=== PATIENT | female | born 1945 | race Caucasian/White ===

== ENCOUNTER 2016-07-19 16:35 | Emergency (ER) | payer MEDICARE, BC ==
[2016-07-19] MEDS ORDERED: MORPHINE SULFATE 4 MG/ML SYRG IV ONE (17:37)
[2016-07-19 17:59] LABS: Hematocrit 40.1 % (37.0-47.0); Mean Cell Volume 91.3 fl (78-100); Mean Corpuscular Hemoglobin 31.9 pg (27-31); Mean Corpuscular Hgb Conc 34.9 g/dl (32-36); Mean Platelet Volume 11.4 fl (6.0-9.5); Neutrophil # 4.4 K/mm3 (1.3-6.0); Neutrophil % 70.8 % (42-75.0); Platelet Count 137 K/mm3 (150-450); Red Blood Count 4.39 M/mm3 (4.2-5.4); Red Cell Distribution Width 13.9 % (11.5-14.0); White Blood Count 6.2 K/mm3 (4.0-10.5)
[2016-07-19 18:04] LABS: Prothrombin Time (Patient) 33.4 Seconds (9.4-11.4)
[2016-07-19] MEDS ORDERED: MORPHINE SULFATE 4 MG/ML SYRG ONE (18:04)
[2016-07-19 18:07] LABS: Albumin * 4.2 gm/dl (3.4-5.0); Anion Gap 14.2 mmol/L (6.8-13.8); BUN/Creatinine Ratio 25.8 (9.0-21.6); Bilirubin, Total 1.1 mg/dL (0.0-1.1); Ca. Corrected For Albumin 8.7 mg/dL (8.4-10.2); Calcium * 9.2 mg/dL (7.9-10.9); Carbon Dioxide 28.1 mmol/L (24-32.6); Potassium 3.3 mmol/L (3.4-4.6); Total Protein 7.6 gm/dL (6.2-8.2)
[2016-07-19 18:09] LABS: INR 3.21 INR (0.90-1.10)
--- NOTE | 2016-07-19 18:30 | ERNOTE ---
Lower Extremity HPI - Narrative Date of Service: 07/19/16 - General Lower Extremities Pain: hip: right Time Seen by Provider: 07/19/16 17:00 Source: patient Exam Limitations: no limitations - Immun/Allergies/Home Medications Immunizations: IMMUNIZATION HX Immunizations Up to Date Yes History of Influenza Vaccine Yes Hx Pneumococcal Vaccination Yes Allergies/Adverse Reactions: Allergies Allergy/AdvReac Type Severity Reaction Status Date / Time secobarbital sodium Allergy Intermediate HIVES, Verified 07/19/16 16:55 [From [place]] HEART PALPITATIONS bee venom (honey bee) Allergy Shortness Verified 07/19/16 16:55 of Breath Home Medications: HOME MEDICATIONS Hydroxychloroquine Sulfate [Plaquenil] 400 mg PO DAILY 04/22/12 [Last Taken Unknown] Atenolol [Tenormin] 50 mg PO QPM 04/28/12 [Last Taken 10/24/15 07:00] Omeprazole [Prilosec] 40 mg PO DAILY 12/29/13 [Last Taken Unknown] Potassium Chloride [K-Dur] 20 meq PO DAILY 12/29/13 [Last Taken Unknown] Simvastatin 40 mg PO DAILY 12/29/13 [Last Taken Unknown] Warfarin Sodium [Coumadin] 4 mg PO SUMOWETHSA 03/10/14 [Last Taken Unknown] Levothyroxine Sodium [Synthroid] 150 mcg PO DAILY 05/25/14 [Last Taken Unknown] Furosemide [Lasix] 120 mg PO DAILY 12/01/14 [Last Taken Unknown] Loratadine [Claritin] 10 mg PO DAILY 12/01/14 [Last Taken Unknown] Polyethylene Glycol 3350 [Gentlelax] 17 gm PO DAILY PRN #510 gm 06/04/15 [Last Taken Unknown] Epinephrine [Epipen 2-Jose] 0.3 mg IM ONCE PRN 08/05/15 [Last Taken Unknown] Warfarin Sodium [Coumadin] 6 mg PO TUFR 08/15/15 [Last Taken Unknown] Acetaminophen [Tylenol] 650 mg PO Q4H PRN 10/17/15 [Last Taken Unknown] Cholecalciferol (Vitamin D3) [Vitamin D3] 2,000 unit PO DAILY 10/17/15 [Last Taken Unknown] oxyCODONE HCL/ACETAMINOPHEN [Percocet 5 MG/325 MG] 1 - 2 tab PO Q4H PRN #90 tab 10/24/15 [Last Taken Unknown] - History of Present Illness Narrative: patient presents to the ED for right hip pain. 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 Landed on right hip. Pain right hip, buttock and groin. Also some pain right mid thigh. no pain below the knee. Also landed right arm with right forearm pain. She is not sure but doesn't think there is any new focal N/T/W. pain severe. Worse with movement and palpation. Could not bear weight after the fall. No nead injury. No posterior neck or back pain. no CP or SOB. No syncope or LOC. Occurred: just prior to arrival Method of Injury: Reports: fell, other - slipped on ice Reason for Fall: Reports: slipped Loss of Consciousness: Reports: no loss of consciousness Modifying Factors - (Improves): Reports: rest Modifying Factors - (Worsens): Reports: movement Associated Symptoms: Reports: unable to bear weight. Denies: headache, chest pain, vomiting/diarrhea, bowel/bladder problems Subsequent Symptoms: Denies: motor loss Prior Treament: Denies: recently seen Review of Systems - Review of Systems Constitutional: Absent: fever Respiratory: Absent: shortness of breath Cardiology: Absent: chest pain Gastrointestinal/Abdominal: Absent: abdominal pain Genitourinary: Absent: dysuria Skin: Present: other - no laceration Neurological: Present: See HPI All Other Systems: All systems neg except as marked - Patient's Past Medical History Patient History - Medical: Arthritis, GERD, Hypothyroidism, Other Patient History - Cardiac/Respiratory: Atrial Fibrillation, Valvular Heart Disease, Other Patient History - Cancer: No Hx of Cancer Patient History - Surgical Procedures: Cataracts, Total Knee Replacement, Tubal Ligation, T & A, Other Patient History - Other: None - Family History Mother Family History - Medical: Family History - Cardiac/Respiratory: Coronary Heart Disease, Myocardial Infarction Father Family History - Medical: Brother Family History - Medical: No pertinent hx Family History - Cardiac/Respiratory: Asthma Sister Family History - Medical: No pertinent hx Family History - Cardiac/Respiratory: Asthma - Social History Living Situations: home Abuse History: No History of abuse Psych History: No pertinent hx Have you smoked in the past 12 months: No Do you dip or chew tobacco: No Alcohol Use: none Drug Use: none - Immunizations Immunizations Up to Date: Yes Hx Pneumococcal Vaccination: Yes History of Influenza Vaccine: Yes Physical Exam - Physical Exam General Appearance: Present: alert, no apparent distress Eye Exam: Normal inspection: bilateral, PERRL: bilateral Ears, Nose, Throat: Present: normal ENT inspection Neck: Present: normal inspection, other - no posterior cervial spine tenderness. No step offs Respiratory: Present: no respiratory distress, normal breath sounds, no accessory muscle use, lungs clear Cardiovascular/Chest: Present: regular rate, rhythm, normal peripheral pulses Peripheral Pulses: N=norm/S=strong/W=weak/B=bound/A=absent: Dorsalis-pedis (R): Normal, Dorsalis-pedis (L): Normal Gastrointestinal/Abdominal: Present: normal bowel sounds, nontender, soft. Absent: tenderness Back Exam: Present: no vertebral tenderness Extremity Exam: Present: other - Right shoulder non-tender. Right elbow non- tender. Mild right mid forearm tenderness. No wrist tenderness. Right lateral hip tenderness and groin tenderness. Pain with ROOM right hip. No knee or LE tenderness. No compartment syndrome. Neurological Exam: Present: other - Pain limits exam but no clear acute unilateral focal motor or sensory deficits. Skin Exam: Present: other - no lacerations seen ED Progress - Results and Orders Patient's Lab Results:: I have reviewed the patient's lab results. - Vital Signs Patient's Vital Signs:: I have reviewed the patient's vital signs. Vital Signs: Vital Signs 07/19/16 07/19/16 16:50 18:19 Pulse Rate 87 77 Respiratory 16 18 Rate Blood Pressure 174/88 148/52 O2 Sat by Pulse 97 96 Oximetry - X-Ray X-Ray #1 X-Ray: forearm Interpretation: Reviewed by me X-ray Comments: I reviewed radiology report X-Ray #2 X-Ray: hip Interpretation: Reviewed by me X-ray Comments: I reviewed official radiology report X-Ray #3 X-Ray: femur Interpretation: Reviewed by me X-ray Comments: I reviewed official radiology report - Progress/Reassessment Chief Complaint: Hip Pain/Injury Progress Note-Subjective: 07/19/16 18:52 Patient with pelvic fracture. She ambulated in the ED. i offered her admission but she requested to go home. She has narcotics at home that she takes. I spoke with Dr Darby who is information technology program manager, she is to call the office tomorrow for an appointment. I told her to eat high potassium foods. She declines admission. I discussed warning signs and reasons to return as well as the need for close f/u. 07/19/16 18:54 Departure Clinical Impression: Fall, Pelvic fracture, Musculoskeletal pain - Departure Disposition: Home self-care Condition: Stable Instructions: Simple Pelvic Fracture, Adult Additional Instructions: Rest. Pain medications as directed. High potassium foods. Pain medicaitons as directed. Walker with height bearing as tolerated. Call orthopedics in the morning for an appointment time, I spoke with Dr Wilner person. Return if you change your mind about admission, develop increased pain, weakness, new or worsening pain or if your condition worsens or changes in any way. Referrals: Saranya Crews DO [Primary Care Provider] -
[2016-07-19 19:22] VITALS: BP 131/69
== END 2016-07-19 19:22 | disposition home or self-care (01) ==
LOC: ER 16:35
DX: S72.001A Fracture of unspecified part of neck of right femur, initial encounter for closed fracture (principal); M79.1 Myalgia; I48.91 Unspecified atrial fibrillation; Z79.01 Long term (current) use of anticoagulants; E03.9 Hypothyroidism, unspecified; K21.9 Gastro-esophageal reflux disease without esophagitis; W00.0XXA Fall on same level due to ice and snow, initial encounter; Y92.008 Other place in unspecified non-institutional (private) residence as the place of occurrence of the external cause

== ENCOUNTER 2018-03-07 08:22 | Observation (INO) | payer BC, MEDICARE ==
[2018-03-07] MEDS ORDERED: FUROSEMIDE 10 MG/ML VIAL IV ONE ×2 (09:30→16:28)
[2018-03-07] MEDS ORDERED: FUROSEMIDE 10 MG/ML VIAL ONE (10:42)
[2018-03-07] MEDS ORDERED: POTASSIUM CHLORIDE 20 MEQ TABLET.SA PO ONE (18:26)
[2018-03-07] MEDS ORDERED: SENNOSIDES/DOCUSATE SODIUM 1 TAB TABLET PO PRN (18:26)
[2018-03-07] MEDS ORDERED: ACETAMINOPHEN 325 MG TABLET PO PRN (18:26)
[2018-03-07] MEDS ORDERED: METOLAZONE 5 MG TABLET PO SCH (18:30)
[2018-03-07] MEDS ORDERED: WARFARIN SODIUM 4 MG TABLET PO SCH (18:30)
[2018-03-07] MEDS ORDERED: POTASSIUM CHLORIDE 10 MEQ TABLET.SA ONE (18:45)
[2018-03-07] MEDS ORDERED: WARFARIN SODIUM 1 MG TABLET ONE (18:45)
[2018-03-07] MEDS ORDERED: CARVEDILOL 12.5 MG TABLET PO SCH (21:00)
[2018-03-07] MEDS ORDERED: CARVEDILOL 25 MG TABLET ONE (21:11)
[2018-03-07] MEDS: oxyCODONE HCL/ACETAMINOPHEN 1 TAB TABLET PO PRN (21:14)
[2018-03-07] MEDS: HYDROXYCHLOROQUINE SULFATE 200 MG TABLET PO SCH (21:16)
[2018-03-08 05:51] LABS: Prothrombin Time (Patient) 23.9 Seconds (9.0-11.0)
[2018-03-08 05:57] LABS: INR 2.37 INR (0.90-1.10)
[2018-03-08] MEDS ORDERED: LEVOTHYROXINE SODIUM 150 MCG TABLET PO SCH (06:00)
[2018-03-08 06:05] LABS: Anion Gap 2.7 mmol/L (6.8-13.8); BUN/Creatinine Ratio 17.2 (9.0-21.6); Calcium * 8.8 mg/dL (7.9-10.9); Carbon Dioxide 37.6 mmol/L (24-32.6); Estimated Creat Clear 34.3; Potassium 3.3 mmol/L (3.4-4.6)
[2018-03-08] MEDS ORDERED: FUROSEMIDE 10 MG/ML VIAL IV ONE (07:00)
[2018-03-08] MEDS ORDERED: PANTOPRAZOLE SODIUM 40 MG TABLET.EC PO SCH (07:30)
[2018-03-08] MEDS ORDERED: POTASSIUM CHLORIDE 20 MEQ TABLET.SA PO SCH (09:00)
[2018-03-08] MEDS: HYDROXYCHLOROQUINE SULFATE 200 MG TABLET PO SCH (09:00)
[2018-03-08] MEDS ORDERED: CARVEDILOL 25 MG TABLET PO SCH (09:00)
[2018-03-08] MEDS ORDERED: SIMVASTATIN 40 MG TABLET PO SCH (09:00)
[2018-03-08] MEDS ORDERED: FELODIPINE 5 MG TAB.SR.24H PO SCH (09:00)
[2018-03-08] MEDS ORDERED: LORATADINE 10 MG TABLET PO SCH (09:00)
[2018-03-08] MEDS ORDERED: FLUTICASONE PROPIONATE 120 SPRAY INHALER NS SCH (09:00)
[2018-03-08] MEDS: oxyCODONE HCL/ACETAMINOPHEN 1 TAB TABLET PO PRN (09:01)
--- NOTE | 2018-03-08 09:04 | HP ---
Chief Complaint - Chief Complaint Date of Service: 03/07/18 Time of Service: 09:40 Chief Complaint: Shortness of breath, increased edema History of Present Illness: Patient admitted from clinic for acute decompensated CHF. The patient has a his tory of combined systolic and diastolic heart failure and is s/p mechanical mitral and aortic valve replacements. The patient has been having markedly increased lower extremity edema and worsening shortness of breath over the past 2 months but more so in the past few weeks. 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 Mcclure, multiple times over the past couple months. She has also been evaluated by myself multiple times over the past couple months and I have expressed my concern that her signs and symptoms are secondary to worsening heart failure. The patient presented to my office on 03/05/2018 for a recheck. On exam, she had 3+ pitting edema, conversational dyspnea, visible SOB with minimal activity and her lungs sounded wet with wheezes bilaterally. I discussed with the patient that she needed to be admitted for IV diuretics, bloodwork, CXR and an echocardiogram; however, the patient and her had plans to go to [place], [place] the following day (03/06/2018) for the train ride. So instead we agreed it was reasonable to complete bloodwork, CXR and an echocardiogram as an outpatient on 03/05/2018 and if there was any critical findings revealed in the bloodwork or echo, I would have the patient come back to be admitted and/or transferred to a higher level of care and if there wasn't anything critical, I would have her return to clinic Saturday AM (03/07/2018) to be admitted for IV diuretics. I spoke with Dr. Mcclure this AM while I was admitting the patient to discuss the case and my concern for a failing mitral valve. He agreed that the patient needed to be admitted for IV diuretics and he stated that he did not feel there were many other options as he does not consider her a surgical candidate. Work-up from 03/05/2018: -Cardiac panel unremarkable -BNP 1681 -TSH and free T4 WNL -Hgb and hct 12.1 and 31.1% -Platelet count 113 -INR 4.57 on 03/03/2018 -Creatinine 1.01 2D echocardiogram on 03/05/2018: Left Ventricle: Borderline dilated. Mild concentric LVH. Transmitral spectral Doppler flow pattern suggestive of restrictive physiology. Ejection Fraction = 40-45%. Mild global hypokinesis. Right Ventricle: Normal size. Normal wall thickness. Atria: Left atrium moderately dilated. Right atrium is moderately dilated. Bi- Atrial enlargement left>right. Mitral Valve: Moderate annular calcification. Mechanical mitral valve. Mitral regurgitation is present, however its severity cannot be assessed due to shielding from the prosthesis. P1/2 time went up to 92 ms from 58 ms. However, peak velocity dropped from 2.4m/sec to 2m/sec. Doppler reveals an intravalvular leak from the prosthetic mitral valve. Tricuspid Valve: Not well visualized but grossly normal. Mild to moderate tricuspid regurgitation. Right ventricular systolic pressure elevated at 47mmHg. Annuloplasty ring is noted in the tricuspid position. Aortic Valve: Not heavily calcified. Mild to moderate regurgitation. Mechanical aortic valve. Gradient is normal for this prosthetic aortic valve; mean PG 18mmHg. Pulmonic Valve: Not well seen but grossly normal. No regurgitation. Great Vessels: Aortic root normal size. Mildly dilated ascending aorta. Pericardium/Pleural: No pericardial effusion. 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 Rosacea Sjogren's disease Onset Date: 1999 Vision loss of right eye Onset Date: 07/22/17 Surgical History: Surgical History (Last Reviewed 03/07/18 @ 09:42 by Ahmet Mixon RN) Fracture of radial head, left, closed Onset Date: 2011 H/O thyroidectomy History of bowel resection Onset Date: 1998 History of cardioversion Onset Date: 1998 History of cataract surgery Onset Date: 2003 History of mitral valve replacement Onset Date: 01/07/17 History of subtotal thyroidectomy History of tonsillectomy Onset Date: 1958 History of total knee replacement Onset Date: 08/15/15 History of tubal ligation Onset Date: 1969 Mechanical heart valve present Onset Date: 1998 Family History: Family History (Last Reviewed 03/07/18 @ 10:51 by Ahmet Mixon RN) Brother Asthma Father Cancer, Onset Age: 80 Polio Mother Myocardial infarction, Onset Age: 77 Heart disease Sister Asthma Social History: Patient Lives/Resources With Spouse Utilized Occupation retired Preferred Language [place] Citizen Do you have any druze or Yes: Roman Catholic cultural preference? Smoking Status Never smoker Have you smoked in the past 12 No months Do you dip or chew tobacco No Abuse History No History of abuse Psych History No pertinent hx Review Of Systems (GEN) - Review of Systems Generalized/Overall Review: Present: Fatigue Respiratory: Present: Shortness of Breath, Wheezing Cardiac: Present: Edema. Absent: Chest Pain, Palpitations, Syncope Abdominal: Present: No Symptoms Reported Misc: All systems neg except as marked Immunizations: IMMUNIZATION HX Immunizations Up to Date Yes History of Influenza Vaccine Yes Hx Pneumococcal Vaccination Yes Allergies/Adverse Reactions: Allergies Allergy/AdvReac Type Severity Reaction Status Date / Time secobarbital sodium Allergy Intermediate HIVES, Verified 03/07/18 09:43 [From [place]] HEART PALPITATIONS venom-honey bee Allergy Shortness Verified 03/07/18 09:43 [bee venom (honey bee)] of Breath Home Medications: HOME MEDICATIONS Warfarin Sodium [Coumadin] 4 mg PO SUMOWETHFR 03/10/14 [Last Taken Unknown] Loratadine [Claritin] 10 mg PO DAILY 12/01/14 [Last Taken Unknown] EPINEPHrine [Epipen 2-Jose] 0.3 mg IM ONCE PRN 08/05/15 [Last Taken Unknown] Cholecalciferol (Vitamin D3) [Vitamin D3] 2,000 unit PO DAILY 10/17/15 [Last Taken Unknown] Fluticasone Propionate [Flonase] 1 spray NS DAILY 11/18/17 [Last Taken Unknown] levothyroxine 150 mcg tablet 150 mcg PO DAILY #90 tab 01/02/18 [Last Taken Unknown] hydroxychloroquine 200 mg tablet 200 mg PO BID tab 01/15/18 [Last Taken Unknown] omeprazole 20 mg tablet,delayed release 40 mg PO DAILY 01/15/18 [Last Taken Unknown] simvastatin 40 mg tablet 40 mg PO DAILY 01/15/18 [Last Taken Unknown] carvedilol 12.5 mg tablet 25 mg PO BID 01/20/18 [Last Taken Unknown] felodipine ER 5 mg tablet,extended release 24 hr 5 mg PO DAILY #90 tab 01/27/18 [Last Taken Unknown] metolazone 5 mg tablet 5 mg PO .on Tuesdays tab 03/05/18 [Last Taken Unknown] Warfarin Sodium [Coumadin] 2 mg PO TUSA 03/07/18 [Last Taken Unknown] oxyCODONE HCL/ACETAMINOPHEN [Percocet 5 MG/325 MG] 1 - 2 tab PO Q4H PRN 03/07/18 [Last Taken Unknown] Furosemide [Lasix] 80 mg PO BID #120 tab 03/08/18 [Last Taken Unknown] Potassium Chloride [K-Dur] 10 meq PO TID #45 tab 03/08/18 [Last Taken Unknown] Exam - Exam Vital Signs: Vital Signs - Last Taken Temp 37.3 C 03/08/18 07:40 Pulse 65 03/08/18 07:53 Resp 16 03/08/18 07:40 BP 140/66 03/08/18 07:53 Pulse Ox 95 03/08/18 07:40 Constitutional: Present: Alert, Oriented x3, Cooperative, Well developed, Well nourished, No distress, Other - Conversational dyspnea noted. Patient with easily apparent shortness of breath with minimal activity. ENT Exam: Present: moist mucous membranes Eye Exam: bilateral eye: normal inspection, EOMI Respiratory: Present: wheezing, other - Coarse wet sounding breath sounds bilaterally with diffuse wheezes Cardiovascular/Chest: Present: irregularly irregular, other - Mechanical heart sounds secondary mechanical aortic and mitral valves, edema - 3+ pitting edema in bilateral lower extremities Abdomen: Present: soft, nontender Extremity: Present: lower extremity edema - 3+ pitting edema in bilateral lower extremities Skin Exam: Present: normal color, warm/dry Neurologic: Present: no motor/sensory deficits, alert, normal mood/affect, oriented x 3 Appearance: Present: appropriate appearance, appropriate insight, neat, no memory impairment Eye contact: Present: cooperative, good eye contact, normal speech Thoughts: Present: normal thought pattern, no apparent hallucination Diagnostic Studies: Abnormal Lab Results 03/08/18 03/08/18 Range/Units 05:20 05:20 PT 23.9 H (9.0-11.0) Seconds INR (Anticoag Therapy) 2.37 H (0.90-1.10) INR Potassium 3.3 L (3.4-4.6) mmol/L Carbon Dioxide 37.6 H (24-32.6) mmol/L Anion Gap 2.7 L (6.8-13.8) mmol/L Est GFR (Non-Af Amer) 44 L D (60-130) mL/min B-Natriuretic Peptide 1632 H (5-325) pg/mL Laboratory Results PT 23.9 Seconds (9.0-11.0) H 03/08/18 05:20 INR (Anticoag Therapy) 2.37 INR (0.90-1.10) H 03/08/18 05:20 Sodium 134 mmol/L (132-142) 03/08/18 05:20 Plasma Sodium 134 mmol/L (130-142) 03/08/18 05:20 Potassium 3.3 mmol/L (3.4-4.6) L 03/08/18 05:20 Chloride 97 mmol/L (97-106) 03/08/18 05:20 Carbon Dioxide 37.6 mmol/L (24-32.6) H 03/08/18 05:20 Anion Gap 2.7 mmol/L (6.8-13.8) L 03/08/18 05:20 BUN 22 mg/dL (3-23) 03/08/18 05:20 Creatinine 1.28 mg/dL (0.4-1.4) 03/08/18 05:20 Est GFR (Non-Af Amer) 44 mL/min (60-130) L D 03/08/18 05:20 BUN/Creatinine Ratio 17.2 (9.0-21.6) 03/08/18 05:20 Random Glucose 96 mg/dL (70-110) 03/08/18 05:20 Calcium 8.8 mg/dL (7.9-10.9) 03/08/18 05:20 B-Natriuretic Peptide 1632 pg/mL (5-325) H 03/08/18 05:20 Assessment/Plan - Narrative Narrative: Patient admitted for acute decompensation of chronic combined systolic and diastolic heart failure. Give Lasix 80mg IV X 1 for now. I will continue to assess the patient and give additional diuretics later this afternoon and again in the AM. Strict I&O. Daily standing weight. Low salt diet. Plan to discharge home in the AM as long as the patient has made significant improvements in her volume status (ex: decreased lower extremity edema and improvement in her shortness of breath). - Assessment/Plan (1) Acute on chronic combined systolic and diastolic congestive heart failure Problem: Acute
--- NOTE | 2018-03-08 09:08 | DS ---
(1) Acute on chronic combined systolic and diastolic congestive heart failure Problem: Acute (2) Hypokalemia Problem: Acute (3) Diuretic-induced hypokalemia Problem: Acute Description of Stay: ADMISSION DATE: 03/07/2018 DISCHARGE DATE: 03/08/2018 ADMISSION HPI: Patient admitted from clinic for acute decompensated CHF. The patient has a history of combined systolic and diastolic heart failure and is s/p mechanical mitral and aortic valve replacements. The patient has been having markedly increased lower extremity edema and worsening shortness of breath over the past 2 months but more so in the past few weeks. The patient has been evaluated for the worsening SOB and edema by her project management analyst, Dr. Mcclure, multiple times over the past couple months. She has also been evaluated by myself multiple times over the past couple months and I have expressed my concern that her signs and symptoms are secondary to worsening heart failure. The patient presented to my office on 03/05/2018 for a recheck. On exam, she had 3+ pitting edema, conversational dyspnea, visible SOB with minimal activity and her lungs sounded wet with wheezes bilaterally. I discussed with the patient that she needed to be admitted for IV diuretics, bloodwork, CXR and an echocardiogram; however, the patient and her had plans to go to [place], [place] the following day (03/06) for the train ride. So instead we agreed it was reasonable to complete bloodwork, CXR and an echocardiogram as an outpatient on 03/05/2018 and if there was any critical findings revealed in the bloodwork or echo, I would have the patient come back to be admitted and/or transferred to a higher level of care and if there wasn't anything critical, I would have her return to clinic Saturday AM (03/07/2018) to be admitted for IV diuretics. I spoke with Dr. Mcclure this AM while I was admitting the patient to discuss the case and my concern for a failing mitral valve. He agreed that the patient needed to be admitted for IV diuretics and he stated that he did not feel there were many other options as he does not consider her a surgical candidate. Work-up from 03/05/2018: -Cardiac panel unremarkable -BNP 1681 -TSH and free T4 WNL -Hgb and hct 12.1 and 31.1% -Platelet count 113 -INR 4.57 on 03/03/2018 -Creatinine 1.01 2D echocardiogram on 03/05/2018: Left Ventricle: Borderline dilated. Mild concentric LVH. Transmitral spectral Doppler flow pattern suggestive of restrictive physiology. Ejection Fraction = 40-45%. Mild global hypokinesis. Right Ventricle: Normal size. Normal wall thickness. Atria: Left atrium moderately dilated. Right atrium is moderately dilated. Bi- Atrial enlargement left>right. Mitral Valve: Moderate annular calcification. Mechanical mitral valve. Mitral regurgitation is present, however its severity cannot be assessed due to shielding from the prosthesis. P1/2 time went up to 92 ms from 58 ms. However, peak velocity dropped from 2.4m/sec to 2m/sec. Doppler reveals an intravalvular leak from the prosthetic mitral valve. Tricuspid Valve: Not well visualized but grossly normal. Mild to moderate tricuspid regurgitation. Right ventricular systolic pressure elevated at 47mmHg. Annuloplasty ring is noted in the tricuspid position. Aortic Valve: Not heavily calcified. Mild to moderate regurgitation. Mechanical aortic valve. Gradient is normal for this prosthetic aortic valve; mean PG 18mmHg. Pulmonic Valve: Not well seen but grossly normal. No regurgitation. Great Vessels: Aortic root normal size. Mildly dilated ascending aorta. Pericardium/Pleural: No pericardial effusion. HOSPITAL COURSE: Patient admitted for acute decompensation of chronic combined systolic and diastolic heart failure. The patient was diuresed with IV lasix which she responded to very well. The AM of discharge, her lower extremity pitting edema was down to 1+ and the patient admitted her shortness of breath had markedly improved since admission. She was net negative 4045ml during her admission. She is down 1.7kg during her hospital stay - admission weight 85kg and discharge weight 83.3kg. The patient's home diuretics were adjusted as below and the patient was discharged home in stable condition. Of note, the patient would like to establish with a new project management analyst (a provider from [facility] that comes to [facility]) and the patient and her state they have heard good things about Dr. Bauer so would like to establish care with her if possible. I will have my office nursing staff arrange for referral to Dr. Bauer. FOLLOW-UP APPOINTMENTS: -PCP, Dr. Crews, on 03/12/2018, after her physical therapy appointment. -Recheck BMP to monitor kidney function and potassium level on Saturday03/12/2018 -No changes to coumadin. Keep previously scheduled follow-up appointment with the coumadin clinic. -Outpatient referral to [facility], Dr. Bauer NEW OR CHANGED MEDICATIONS: -Patient instructed to change her lasix to 80mg (40mg tabs X 2) in AM (around 0600) and then another 80mg approximately 6 hours later (between noon and 1400) -Patient instructed to increase her home dose of potassium to three times daily. If patient continues to have leg cramps over the next 24-48 hours, she was instructed to increase her potassium four times daily. (She was previously taking 1/2 tablet of 20mEq BID). DISCONTINUED MEDICATIONS: -None RADIOLOGY REPORTS: PA and lateral CXR on 03/05/2018: Increased pulmonary vascularity and peripheral linear lung markings. Pulmonary vascular congestion/interstitial edema suggested. Small bilateral pleural fluid. Large cardiomegaly present. Moderate tortuosity of the thoracic aorta noted, with overlying atherosclerotic vascular calcifications. 2D echocardiogram on 03/05/2018: Left Ventricle: Borderline dilated. Mild concentric LVH. Transmitral spectral Doppler flow pattern suggestive of restrictive physiology. Ejection Fraction = 40-45%. Mild global hypokinesis. Right Ventricle: Normal size. Normal wall thickness. Atria: Left atrium moderately dilated. Right atrium is moderately dilated. Bi- Atrial enlargement left>right. Mitral Valve: Moderate annular calcification. Mechanical mitral valve. Mitral regurgitation is present, however its severity cannot be assessed due to shiel ding from the prosthesis. P1/2 time went up to 92 ms from 58 ms. However, peak velocity dropped from 2.4m/sec to 2m/sec. Doppler reveals an intravalvular leak from the prosthetic mitral valve. Tricuspid Valve: Not well visualized but grossly normal. Mild to moderate tricuspid regurgitation. Right ventricular systolic pressure elevated at 47mmHg. Annuloplasty ring is noted in the tricuspid position. Aortic Valve: Not heavily calcified. Mild to moderate regurgitation. Mechanical aortic valve. Gradient is normal for this prosthetic aortic valve; mean PG 18mmHg. Pulmonic Valve: Not well seen but grossly normal. No regurgitation. Great Vessels: Aortic root normal size. Mildly dilated ascending aorta. Pericardium/Pleural: No pericardial effusion. Procedures Performed: none Results and Findings: Lab Pending Results 03/08/18 05:20: PT 23.9 H, INR (Anticoag Therapy) 2.37 H 03/08/18 05:20: Sodium 134, Plasma Sodium 134, Potassium 3.3 L, Chloride 97, Carbon Dioxide 37.6 H, Anion Gap 2.7 L, BUN 22, Creatinine 1.28, Est GFR (Non-Af Amer) 44 L D, BUN/Creatinine Ratio 17.2, Random Glucose 96, Calcium 8.8, B- Natriuretic Peptide 1632 H Discharge Location: Home Disposition: Home self-care Condition: Stable Discharge Activity: Activity as tolerated Discharge Diet: Low salt Referrals: Saranya Crews DO [Primary Care Provider] - Problem Oriented Discharge Instructions to Patient/Family: Heart Failure, [id number], CHF Patient Instructions Additional Patient Instructions (free text): -Please make TCM appointment unless halfway discharge. Thank you! Amira @ [phone]. -Patient will follow-up with me on 03/12/2018, after her physical therapy appointment. Schedule patient to see me around 0900 on Saturday, knowing that she will head to the office after her PT session is completed. -Patient instructed to change her lasix to 80mg (40mg tabs X 2) in AM (around 0600) and then another 80mg approximately 6 hours later (between noon and 1400) -Patient instructed to increase her home dose of potassium to three times daily. If patient continues to have leg cramps over the next 24-48 hours, she was instructed to increase her potassium four times daily. (She was previously taking 1/2 tablet of 20mEq BID). -Recheck BMP to monitor kidney function and potassium level on Monday 03/12 -No changes to coumadin. Keep previously scheduled follow-up appointment with the coumadin clinic. Prescriptions (Any new or edited meds): Furosemide [Lasix] 80 mg PO BID #120 tab Potassium Chloride [K-Dur] 10 meq PO TID #45 tab Complete Home Medications List: Complete Home Medication List: Warfarin Sodium [Coumadin] 4 mg PO SUMOWETHFR 03/10/14 Loratadine [Claritin] 10 mg PO DAILY 12/01/14 EPINEPHrine [Epipen 2-Jose] 0.3 mg IM ONCE PRN 08/05/15 Cholecalciferol (Vitamin D3) [Vitamin D3] 2,000 unit PO DAILY 10/17/15 Fluticasone Propionate [Flonase] 1 spray NS DAILY 11/18/17 levothyroxine 150 mcg tablet 150 mcg PO DAILY #90 tab 01/02/18 hydroxychloroquine 200 mg tablet 200 mg PO BID tab 01/15/18 omeprazole 20 mg tablet,delayed release 40 mg PO DAILY 01/15/18 simvastatin 40 mg tablet 40 mg PO DAILY 01/15/18 carvedilol 12.5 mg tablet 25 mg PO BID 01/20/18 felodipine ER 5 mg tablet,extended release 24 hr 5 mg PO DAILY #90 tab 01/27/18 metolazone 5 mg tablet 5 mg PO .on Tuesdays tab 03/05/18 Warfarin Sodium [Coumadin] 2 mg PO 03/07/18 oxyCODONE HCL/ACETAMINOPHEN [Percocet 5 MG/325 MG] 1 - 2 tab PO Q4H PRN 03/07/18 Furosemide [Lasix] 80 mg PO BID #120 tab 03/08/18 Potassium Chloride [K-Dur] 10 meq PO TID #45 tab 03/08/18
[2018-03-08 09:49] VITALS: BP 101/71
[2018-03-08] MEDS ORDERED: WARFARIN SODIUM 2 MG TABLET PO SCH (17:00)
[2018-03-09] MEDS ORDERED: WARFARIN SODIUM 4 MG TABLET PO SCH (17:00)
[2018-03-11] MEDS ORDERED: METOLAZONE 5 MG TABLET PO SCH (09:00)
== END 2018-03-08 10:05 | disposition home or self-care (01) ==
LOC: CCFAL → MS 08:22
PROVIDERS: ADMIT Internal Medicine; ATTEND Internal Medicine
DX: Z79.01 Long term (current) use of anticoagulants
CPT/HCPCS: 36415; 80048; 83519; 83880; 85610; 96374; 96376; G0378; G0379